=== PATIENT | female | born 1980 | race Caucasian/White ===

== ENCOUNTER 2016-09-02 08:45 | Outpatient (RCR) | payer OTHER | END 2016-09-03 | disposition home or self-care (01) | LOC: M OUTALCOH 08:45 | PROVIDERS: ATTEND Psychiatry & Neurology Psychiatry | DX: F11.20 Opioid dependence, uncomplicated (principal); F19.20 Other psychoactive substance dependence, uncomplicated; F15.20 Other stimulant dependence, uncomplicated ==

== ENCOUNTER 2016-09-11 08:45 | Outpatient (RCR) | payer OTHER | END 2016-10-01 | LOC: M OUTALCOH 08:45 | PROVIDERS: ATTEND Psychiatry & Neurology Psychiatry | DX: Z13.9 Encounter for screening, unspecified (principal); F19.20 Other psychoactive substance dependence, uncomplicated; F15.20 Other stimulant dependence, uncomplicated; F11.20 Opioid dependence, uncomplicated ==

== ENCOUNTER 2018-05-04 12:44 | Emergency (ER) | payer SELFPAY, OTHER, MEDICAID ==
[2018-05-04 15:06] LABS: INFLUENZA A AMPLIFICATION NEGATIVE (NEGATIVE); INFLUENZA B AMPLIFICATION NEGATIVE (NEGATIVE)
== END 2018-05-04 15:26 | disposition home or self-care (01) ==
LOC: M ED 12:44
DX: J06.9 Acute upper respiratory infection, unspecified (principal); S20.212A Contusion of left front wall of thorax, initial encounter; W22.8XXA Striking against or struck by other objects, initial encounter; Y92.9 Unspecified place or not applicable; Y93.9 Activity, unspecified; Y99.9 Unspecified external cause status; Z72.0 Tobacco use; Z79.899 Other long term (current) drug therapy; Z91.040 Latex allergy status
CPT/HCPCS: 71101

== ENCOUNTER → 2019-01-26 | Outpatient (CLI) | payer SELFPAY ==
[~2019-01-26] MED LIST: ALL10TAB28 PO
== END ==
LOC: M OUTALCOH 09:43
PROVIDERS: ATTEND Psychiatry & Neurology Psychiatry
DX: F15.20 Other stimulant dependence, uncomplicated (principal)

== ENCOUNTER → 2019-03-03 | Outpatient (RCR) | payer SELFPAY | LOC: M OUTALCOH 02-19 10:57 | PROVIDERS: ATTEND Psychiatry & Neurology Psychiatry | DX: F15.20 Other stimulant dependence, uncomplicated (principal); F11.21 Opioid dependence, in remission; F17.200 Nicotine dependence, unspecified, uncomplicated ==

== ENCOUNTER 2019-03-31 07:52 | Outpatient (RCR) | payer MEDICAID, SELFPAY | END 2019-04-03 | LOC: M OUTALCOH 07:52 | PROVIDERS: ATTEND Psychiatry & Neurology Psychiatry | DX: F15.20 Other stimulant dependence, uncomplicated (principal); F17.200 Nicotine dependence, unspecified, uncomplicated ==

== ENCOUNTER → 2019-05-03 | Outpatient (RCR) | payer OTHER, SELFPAY ==
[~2019-05-03] MED LIST changes: -ALL10TAB28 PO; +ALL10TAB29 PO
== END ==
LOC: M OUTALCOH 04-06 11:05
PROVIDERS: ATTEND Psychiatry & Neurology Psychiatry
DX: F15.20 Other stimulant dependence, uncomplicated (principal); F17.200 Nicotine dependence, unspecified, uncomplicated

== ENCOUNTER 2019-05-31 08:45 | Outpatient (RCR) | payer MEDICAID, OTHER | END 2019-06-03 | LOC: M OUTALCOH 08:45 | PROVIDERS: ATTEND Psychiatry & Neurology Psychiatry | DX: F15.20 Other stimulant dependence, uncomplicated (principal); F17.200 Nicotine dependence, unspecified, uncomplicated ==

== ENCOUNTER 2019-06-28 12:47 | Outpatient (RCR) | payer MEDICAID | END 2019-07-03 | LOC: M OUTALCOH 12:47 | PROVIDERS: ATTEND Psychiatry & Neurology Psychiatry | DX: F15.20 Other stimulant dependence, uncomplicated (principal); F17.200 Nicotine dependence, unspecified, uncomplicated ==

== ENCOUNTER 2019-08-02 14:00 | Outpatient (RCR) | payer MEDICAID | END 2019-08-03 | LOC: M OUTALCOH 14:00 | PROVIDERS: ATTEND Psychiatry & Neurology Psychiatry | DX: F15.20 Other stimulant dependence, uncomplicated (principal); F17.200 Nicotine dependence, unspecified, uncomplicated ==

== ENCOUNTER 2019-08-30 16:00 | Outpatient (RCR) | payer MEDICAID | END 2019-09-03 | LOC: M OUTALCOH 16:00 | PROVIDERS: ATTEND Psychiatry & Neurology Psychiatry | DX: F15.20 Other stimulant dependence, uncomplicated (principal); F17.200 Nicotine dependence, unspecified, uncomplicated ==

== ENCOUNTER 2019-09-29 12:00 | Outpatient (RCR) | payer MEDICAID | END 2019-10-02 | LOC: M OUTALCOH 12:00 | PROVIDERS: ATTEND Psychiatry & Neurology Addiction Medicine | DX: F15.20 Other stimulant dependence, uncomplicated (principal); F17.200 Nicotine dependence, unspecified, uncomplicated ==

== ENCOUNTER 2019-10-27 14:00 | Outpatient (RCR) | payer MEDICAID | END 2019-11-02 | LOC: M OUTALCOH 14:00 | PROVIDERS: ATTEND Psychiatry & Neurology Addiction Medicine | DX: F19.20 Other psychoactive substance dependence, uncomplicated (principal); F15.20 Other stimulant dependence, uncomplicated; F11.21 Opioid dependence, in remission; F17.200 Nicotine dependence, unspecified, uncomplicated ==

== ENCOUNTER → 2020-07-19 | Outpatient (CLI) | payer MEDICAID, OTHER ==
[~2020-07-19] MED LIST changes: -ALL10TAB29 PO; +CETI-24 PO
== END ==
LOC: M LABSMTC 13:30
PROVIDERS: ATTEND Family Medicine
DX: Z20.828 Contact with and (suspected) exposure to other viral communicable diseases (principal)